=== PATIENT | female | born 1975 | race Caucasian/White ===

== ENCOUNTER 2017-05-02 14:18 | Emergency (ER) | payer MEDICAID ==
[~2017-05-02] VITALS: Ht 160 cm; Wt 50.7 kg
[2017-05-02 14:30] VITALS: BP_SYST 111; BP_SYST 117; BP_SYST 131; BP_DIAS 67; BP_DIAS 68; BP_DIAS 78; PULSE 100; PULSE 84; RESP 18; TEMP 97.6; O2SAT 97; O2SAT 99
--- NOTE | 2017-05-02 14:43 | PD ---
HPI Chief Complaint: Cardiac Complaint Time Seen by Provider: 14:27 Travel History International Travel<30 days: No Contact w/Intl Traveler<30days: No Traveled to known affect area: No History of Present Illness HPI The patient was seen and examined in the presence of the nurse. This patient complains of chest pain. Duration 3 days. Severity is moderate. Symptoms are not exertional. There is a pleuritic component to it. Location is low center sternum. Feels like an aching and pulling sensation. No shortness of breath. No cough or fever. No injury. She denies history of coronary artery disease. Has never had stress testing. 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 No alleviating factors. There are no exacerbating factors. Symptoms are positional. PFSH Social History Alcohol Use: No Tobacco Use: No Substance Use: No Allergies-Medications (Allergen,Severity, Reaction): Coded Allergies: No Known Allergies (Verified Allergy, Unknown, 05/02/17) Reported Meds & Prescriptions Reported Meds & Active Scripts Active No Active Prescriptions or Reported Medications Review of Systems General / Constitutional: No: Fever Eyes: No: Visual changes HENT: No: Headaches Cardiovascular: Positive: Chest Pain or Discomfort Respiratory: No: Shortness of Breath Gastrointestinal: No: Abdominal Pain Genitourinary: No: Dysuria Musculoskeletal: No: Pain Skin: No Rash Neurologic: No: Weakness Psychiatric: No: Depression Endocrine: No: Polydipsia Hematologic/Lymphatic: No: Easy Bruising Physical Exam Narrative GENERAL: Well-nourished, well-developed patient in no apparent distress. SKIN: Focused skin assessment reveals no rash and nodules. Skin is Warm and dry. HEAD: Atraumatic. Normocephalic. EYES: Pupils equal and round. No scleral icterus. No injection or drainage. ENT: No nasal bleeding or discharge. Mucous membranes pink and moist. NECK: Trachea midline. No JVD. CARDIOVASCULAR: Regular rate and rhythm. No murmur appreciated. RESPIRATORY: No accessory muscle use. Clear to auscultation. Breath sounds equal bilaterally. GASTROINTESTINAL: Abdomen soft, non-tender, nondistended. Hepatic and splenic margins not palpable. MUSCULOSKELETAL: No obvious deformities. No clubbing. No cyanosis. No edema. NEUROLOGICAL: Awake and alert. No obvious cranial nerve deficits. Motor grossly within normal limits. Normal speech. PSYCHIATRIC: Appropriate mood and affect; insight and judgment normal. Data Data Last Documented VS Vital Signs Date Time Temp Pulse Resp B/P (MAP) Pulse Ox O2 Delivery O2 Flow Rate FiO2 05/02/17 15:53 82 18 110/75 (87) 99 Room Air 05/02/17 14:30 97.6 Orders Orders Electrocardiogram (05/02/17 14:35) Basic Metabolic Panel (Bmp) (05/02/17 14:35) Ckmb (Isoenzyme) Profile (05/02/17 14:35) Complete Blood Count With Diff (05/02/17 14:35) D-Dimer (05/02/17 14:35) Prothrombin Time / Inr (Pt) (05/02/17:35) Act Partial Throm Time (Ptt) (05/02/17 14:35) Troponin I (05/02/17 14:35) Chest, Single Ap (05/02/17 14:35) Ecg Monitoring (05/02/17 14:35) Bilateral Bp Monitoring (05/02/17 14:35) Iv Access Insert/Monitor (05/02/17 14:35) Oximetry (05/02/17 14:35) Labs Laboratory Tests Test 05/02/17 14:30 White Blood Count 6.7 TH/MM3 Red Blood Count 4.51 MIL/MM3 Hemoglobin 14.2 GM/DL Hematocrit 41.3 % Mean Corpuscular Volume 91.7 FL Mean Corpuscular Hemoglobin 31.5 PG Mean Corpuscular Hemoglobin Concent 34.4 % Red Cell Distribution Width 11.6 % Platelet Count 303 TH/MM3 Mean Platelet Volume 7.2 FL Neutrophils (%) (Auto) 59.0 % Lymphocytes (%) (Auto) 31.2 % Monocytes (%) (Auto) 5.9 % Eosinophils (%) (Auto) 3.4 % Basophils (%) (Auto) 0.5 % Neutrophils # (Auto) 4.0 TH/MM3 Lymphocytes # (Auto) 2.1 TH/MM3 Monocytes # (Auto) 0.4 TH/MM3 Eosinophils # (Auto) 0.2 TH/MM3 Basophils # (Auto) 0.0 TH/MM3 CBC Comment DIFF FINAL Differential Comment Prothrombin Time 11.8 SEC Prothromb Time International Ratio 1.1 RATIO Activated Partial Thromboplast Time 29.5 SEC D-Dimer Quantitative (PE/DVT) LESS THAN 0.19 MG/L FEU Blood Urea Nitrogen 10 MG/DL Creatinine 0.69 MG/DL Random Glucose 110 MG/DL Calcium Level 8.4 MG/DL Sodium Level 139 MEQ/L Potassium Level 3.5 MEQ/L Chloride Level 105 MEQ/L Carbon Dioxide Level 25.8 MEQ/L Anion Gap 8 MEQ/L Estimat Glomerular Filtration Rate 93 ML/MIN Total Creatine Kinase 84 U/L Troponin I LESS THAN 0.02 NG/ML MDM Medical Decision Making Medical Screen Exam Complete: Yes Emergency Medical Condition: Yes Medical Record Reviewed: Yes Differential Diagnosis Differential diagnosis includes LA, angina, pericarditis, pleurisy, GERD, anxiety. Narrative Course I have reviewed the patient's electronic medical record. IV placed I reviewed the EKG which shows sinus rhythm and no ST elevation or ectopy I reviewed the chest x-ray which is normal Extended cardiac monitoring shows sinus rhythm without ectopy CBC is normal Metabolic profile is normal CK is normal Troponin is normal Coagulation studies are normal D-dimer is 0.19, ruling out PE in this low risk patient Workup here is negative. We had a lengthy discussion about hospitalizing for this chest pain. She does not want to stay and doesn't have anyone to watch her young child. In any event I don't think it is necessary or indicated at this time. Her chest pain is very atypical. It is pleuritic and positional and nonexertional, all pointing away from cardiac cause. Also, she is young and has 0 risk factors. I think the likelihood that she has a false positive stress test is probably higher than the chance that she has actual coronary artery blockage. She does have a primary physician and she will call there Friday to get follow- up. If her chest pain worsens or changes she should come back for evaluation. She is agreeable. Diagnosis Primary Impression: Atypical chest pain Additional Instructions: Call primary physician Friday for follow-up Med/Other Pt SpecificInfo: Other Scripts No Active Prescriptions or Reported Meds Disposition: DISCHARGE HOME Condition: Stable Nolan Anand MD May 02, 2017 14:43
[2017-05-02 14:50] LABS: BASOPHIL % 0.5 % (0.0-2.0); EOSINOPHIL # 0.2 TH/MM3 (0-0.4); EOSINOPHIL % 3.4 % (0.0-4.0); HEMATOCRIT 41.3 % (35.0-46.0); HEMO FLAGS DIFF FINAL; LYMPH % 31.2 % (9.0-44.0); LYMPHOCYTE # 2.1 TH/MM3 (1.0-4.8); MEAN CELL VOLUME 91.7 FL (80.0-100.0); MEAN CORPUSCULAR HEMOGLOBIN 31.5 PG (27.0-34.0); MEAN CORPUSCULAR HGB CONC 34.4 % (32.0-36.0); MONO % 5.9 % (0.0-8.0); PLATELET COUNT 303 TH/MM3 (150-450); RED BLOOD COUNT 4.51 MIL/MM3 (4.00-5.30); RED CELL DISTRIBUTION WIDTH 11.6 % (11.6-17.2); WHITE BLOOD COUNT 6.7 TH/MM3 (4.0-11.0)
[2017-05-02 15:01] LABS: CHLORIDE 105 MEQ/L (98-107); POTASSIUM 3.5 MEQ/L (3.5-5.1); SODIUM (NA) 139 MEQ/L (136-145)
[2017-05-02 15:05] LABS: ANION GAP 8 MEQ/L (5-15); BICARBONATE 25.8 MEQ/L (21.0-32.0); BLOOD UREA NITROGEN 10 MG/DL (7-18)
[2017-05-02 15:08] LABS: GLOMERULAR FILTRATION RATE 93 ML/MIN (>89)
[2017-05-02 15:13] LABS: CREATINE KINASE 84 U/L (26-192)
[2017-05-02 15:38] LABS: APTT (PATIENT) 29.5 SEC (24.3-30.1); INTERNATIONAL NORMALIZED RATIO 1.1 RATIO; PROTHROMBIN TIME - PATIENT 11.8 SEC (9.8-11.6)
[2017-05-02 15:53] VITALS: BP 110/75; PULSE 82; RESP 18; O2SAT 99
--- NOTE | 2017-05-02 16:22 | RADRPT ---
EXAM DATE/TIME: 05/02/2017 15:52 [facility] COMPARISON: No previous studies available for comparison. INDICATIONS : Chest pain and tightness with history of SVT. MEDICAL HISTORY : SVT SURGICAL HISTORY : Cardiac ablation ENCOUNTER: Initial ACUITY: 4 - 6 days PAIN SCORE: 5/10 LOCATION: Bilateral upper chest FINDINGS: A single view of the chest demonstrates the lungs to be symmetrically aerated without evidence of mas s, infiltrate or effusion. The cardiomediastinal contours are unremarkable. Osseous structures are intact. CONCLUSION: 1. No acute cardiopulmonary disease. Matty Nieto MD on May 02, 2017 at 16:20 Board Certified Radiologist. This report was verified electronically.
[2017-05-02 16:52] VITALS: BP 110/60
--- NOTE | 2017-05-03 12:09 | EKG ---
Date Performed: 05/02/2017 Time Performed: 14:27:30 PTAGE: 41 years EKG: SINUS TACHYCARDIA POSSIBLE LEFT ATRIAL ENLARGEMENT POSSIBLE RIGHT VENTRICULAR CONDUCTION DE LAY NONSPECIFIC T-WAVE ABNORMALITY ABNORMAL RHYTHM ECG NO PREVIOUS TRACING DOCTOR: Yaw Durand Interpretating Date/Time 05/03/2017 12:07:37
== END 2017-05-02 16:59 | disposition home or self-care (01) ==
LOC: PHED 14:18
DX: R07.89 Other chest pain (principal); R94.31 Abnormal electrocardiogram [ECG] [EKG]
CPT/HCPCS: 71010; 80048; 82550; 84484; 85025; 85379; 85610; 85730; 93005; 99285